=== PATIENT | male | born 1985 | race Hispanic/Latino ===

== ENCOUNTER 2019-01-07 07:40 | Emergency (ER) | payer SELFPAY ==
--- NOTE | 2019-01-07 08:31 | RAD ---
3 views right shoulder. HISTORY: Right shoulder pain. AP internally, externally scapular Y views right shoulder demonstrates mild right AC joint degenerati ve changes. No evidence of acute fractures or bony lesions seen. IMPRESSION: right AC joint degenerative changes with no evidence of acute bony lesion seen.
== END 2019-01-07 09:39 | disposition home or self-care (01) ==
LOC: ERS 07:40
DX: M54.12 Radiculopathy, cervical region (principal); I10 Essential (primary) hypertension; Z79.899 Other long term (current) drug therapy